=== PATIENT | female | born 1975 | race African-American/Black ===

== ENCOUNTER 2021-04-23 09:19 | Outpatient (CLI) | payer OTHER ==
[2021-04-23 10:39] LABS: Hemoglobin 13.3 g/dL (12.0-15.5); Mean Corpuscular HGB CONC 32.5 g/dL (32.0-36.0); Mean Corpuscular Hemoglobin 27.7 pg (27.0-33.0); Mean Platelet Volume 12.1 fl (7.4-10.4); Platelet Count 246 10x3/uL (150-450); RBC Distribution Width 13.2 % (11.5-14.5); Red Blood Cell (RBC) Count 4.81 10x6/uL (3.90-5.03); White Blood Cell (WBC) Count 4.8 10x3/uL (3.5-10.5)
[2021-04-23 10:51] LABS: BHCG - Serum Negative (NEGATIVE); Pregs Control Bar Appear? YES (CONTROL BAR)
[2021-04-23 10:52] LABS: Pregs Control Background? CLEAR/WHITE (CLR/WHITE)
== END 2021-04-23 09:20 | disposition home or self-care (01) ==
LOC: CSHLAB 09:19
PROVIDERS: ATTEND Obstetrics & Gynecology
DX: Z01.812 Encounter for preprocedural laboratory examination (principal); D25.9 Leiomyoma of uterus, unspecified; N94.6 Dysmenorrhea, unspecified
CPT/HCPCS: 84703; 85027; 86850; 86900; 86901

== ENCOUNTER 2021-05-04 09:46 | Inpatient (IN) | payer OTHER ==
[2021-05-04] MEDS ORDERED: Morphine 4 MG/ML VIAL SLOW IVP PRN ×2 (09:49→10:19)
[2021-05-04] MEDS ORDERED: HYDROcodone/Acetaminophen 5/325 mg Tablet PO PRN ×2 (09:49)
[2021-05-04] MEDS ORDERED: Bisacodyl 10 MG SUPP PR PRN (09:49)
[2021-05-04] MEDS ORDERED: diphenhydrAMINE 25 MG CAP PO PRN (09:49)
[2021-05-04] MEDS ORDERED: Lactated Ringer's 1,000 ML IV SCH (10:00)
[2021-05-04] MEDS ORDERED: Sodium Chloride 0.9% 1,000 ML IV SCH ×2 (10:00→10:30)
[2021-05-04 10:52] LABS: #Eosinphils 0.1 10x3/uL (0.0-0.5); #Neutrophils 11.2 10x3/uL (1.5-8.4); %Basophils 0.1 % (0.0-2.0); %Eosinophils 0.4 % (0.0-6.0); %Lymphocytes 13.3 % (18.0-47.0); %Monocytes 7.3 % (0.0-10.0); %Neutrophils 78.5 % (40.0-75.0); Hemoglobin 12.1 g/dL (12.0-15.5); Mean Corpuscular HGB CONC 33.6 g/dL (32.0-36.0); Mean Corpuscular Hemoglobin 27.6 pg (27.0-33.0); Mean Corpuscular Volume 82.2 fl (81.6-98.3); Mean Platelet Volume 10.9 fl (7.4-10.4); Platelet Count 250 10x3/uL (150-450); RBC Distribution Width 13.2 % (11.5-14.5); Red Blood Cell (RBC) Count 4.38 10x6/uL (3.90-5.03); White Blood Cell (WBC) Count 14.2 10x3/uL (3.5-10.5)
[2021-05-04] MEDS: Lactated Ringer's 1,000 ML IV SCH ×2 (10:58→22:16)
[2021-05-04] MEDS ORDERED: Piperacillin/Tazobactam 3.375 GM in Sodium Chloride 0.9% 100 ML IVPB SCH (11:00)
[2021-05-04 11:02] LABS: ALT (SGPT) 25 U/L (8-55); AST (SGOT) 19 U/L (5-34); Albumin 3.7 g/dL (3.5-5.0); Alkaline Phosphatase 83 U/L (40-110); Anion Gap 13 mmol/L (10-20); BUN (Urea Nitrogen) 11 mg/dL (7.0-18.7); Bilirubin, Total 0.5 mg/dL (0.2-1.2); Calc. Creatinine Clearance 0 mL/min (70-130); Calcium 9.1 mg/dL (7.8-10.44); Carbon Dioxide 23 mmol/L (22-29); Chloride 103 mmol/L (98-107); Globulin 4.1 g/dL (2.4-3.5); Glucose 81 mg/dL (70-105); Potassium 3.7 mmol/L (3.5-5.1); Protein, Total 7.8 g/dL (6.0-8.3); Sodium 135 mmol/L (136-145)
[2021-05-04 11:07] VITALS: BMI 31.2
[2021-05-04 12:37] LABS: Bilirubin Neg (Negative); Blood, Urine 50 (Negative); Clarity Cloudy (Clear); Glucose, Urine (Dipstick) Normal (Negative); Ketone, Urine 15 mg/dL (Negative); Leukocyte 500 (Negative); Nitrite Negative (Negative); Protein, Urine (Dipstick) 30 mg/dl (Neg-Trace); Specific Gravity, Urine 1.015 (1.002-1.036)
[2021-05-04 12:40] LABS: Urine Culture Reflex No No
[2021-05-04 12:45] LABS: Bacteria/HPF 3+ HPF (None Seen); Squamous Epithelial 0-3 HPF (0-3)
[2021-05-04] MEDS: metroNIDAZOLE 500 MG in Premix Bag 1 BAG IVPB SCH ×2 (14:15→22:17)
[2021-05-04] MEDS: Piperacillin/Tazobactam 3.375 GM in Sodium Chloride 0.9% 100 ML IVPB SCH ×2 (16:06→22:17)
[2021-05-04] MEDS ORDERED: Acetaminophen 325 MG TAB PO PRN (16:52)
[2021-05-04 19:54] LABS: #Eosinphils 0.1 10x3/uL (0.0-0.5); #Neutrophils 8.5 10x3/uL (1.5-8.4); %Basophils 0.2 % (0.0-2.0); %Eosinophils 0.6 % (0.0-6.0); %Lymphocytes 19.1 % (18.0-47.0); %Monocytes 8.4 % (0.0-10.0); %Neutrophils 71.1 % (40.0-75.0); Hemoglobin 11.3 g/dL (12.0-15.5); Mean Corpuscular HGB CONC 33.4 g/dL (32.0-36.0); Mean Corpuscular Hemoglobin 27.4 pg (27.0-33.0); Mean Corpuscular Volume 81.8 fl (81.6-98.3); Platelet Count 254 10x3/uL (150-450); RBC Distribution Width 13.3 % (11.5-14.5); Red Blood Cell (RBC) Count 4.13 10x6/uL (3.90-5.03)
[2021-05-04] MEDS: Zolpidem Tartrate 5 MG TAB PO PRN (22:18)
[2021-05-04] MEDS: Ibuprofen 800 MG TAB PO PRN (22:18)
[2021-05-05] MEDS: Piperacillin/Tazobactam 3.375 GM in Sodium Chloride 0.9% 100 ML IVPB SCH ×3 (05:43→22:15)
[2021-05-05] MEDS: metroNIDAZOLE 500 MG in Premix Bag 1 BAG IVPB SCH ×3 (05:43→22:16)
[2021-05-05] MEDS: Lactated Ringer's 1,000 ML IV SCH ×3 (05:45→22:16)
[2021-05-05] MEDS: Ibuprofen 800 MG TAB PO PRN ×2 (08:29→20:07)
[2021-05-05 16:45] LABS: #Eosinphils 0.1 10x3/uL (0.0-0.5); #Monocytes 0.7 10x3/uL (0.0-1.1); #Neutrophils 7.8 10x3/uL (1.5-8.4); %Basophils 0.3 % (0.0-2.0); %Eosinophils 1.1 % (0.0-6.0); %Lymphocytes 18.1 % (18.0-47.0); %Monocytes 6.6 % (0.0-10.0); %Neutrophils 73.5 % (40.0-75.0); Hemoglobin 11.2 g/dL (12.0-15.5); Mean Corpuscular Hemoglobin 27.4 pg (27.0-33.0); Mean Corpuscular Volume 82.9 fl (81.6-98.3); Mean Platelet Volume 10.4 fl (7.4-10.4); Platelet Count 290 10x3/uL (150-450); RBC Distribution Width 13.4 % (11.5-14.5); Red Blood Cell (RBC) Count 4.09 10x6/uL (3.90-5.03); White Blood Cell (WBC) Count 10.6 10x3/uL (3.5-10.5)
[2021-05-05] MEDS: Zolpidem Tartrate 5 MG TAB PO PRN (22:16)
[2021-05-06] MEDS: Piperacillin/Tazobactam 3.375 GM in Sodium Chloride 0.9% 100 ML IVPB SCH (05:24)
[2021-05-06] MEDS: metroNIDAZOLE 500 MG in Premix Bag 1 BAG IVPB SCH (05:25)
[2021-05-06] MEDS: Lactated Ringer's 1,000 ML IV SCH (06:09)
[2021-05-06 11:23] VITALS: BP 128/80; TEMP 98.2
[2021-05-07] MEDS ORDERED: Fluconazole 100 MG TAB PO SCH (09:00)
== END 2021-05-06 11:40 | disposition home or self-care (01) | DRG 863 ==
LOC: CSHERS 09:46 → EDSTATUS 09:55 → CSHPED 09:56
PROVIDERS: ADMIT Obstetrics & Gynecology; ATTEND Obstetrics & Gynecology
DX: T81.49XA Infection following a procedure, other surgical site, initial encounter (principal); N73.9 Female pelvic inflammatory disease, unspecified; N73.2 Unspecified parametritis and pelvic cellulitis; Y83.8 Other surgical procedures as the cause of abnormal reaction of the patient, or of later complication, without mention of misadventure at the time of the procedure
CPT/HCPCS: 36415; 74177; 80053; 81001; 85025; 87077; 87086; 87186; J2543; J3490; J7120

== ENCOUNTER 2025-03-07 19:10 | Emergency (ER) | payer OTHER, SELFPAY ==
[2025-03-07] MEDS ORDERED: diphenhydrAMINE 50 MG/ML VIAL ONE (23:52)
[2025-03-07] MEDS ORDERED: Metoclopramide HCl 10 MG (2 mL) VIAL ONE (23:52)
[2025-03-07] MEDS ORDERED: Ketorolac Tromethamine 30 MG (1 mL) VIAL ONE (23:52)
[2025-03-08 00:05] LABS: BHCG - Serum Negative (NEGATIVE); Pregs Control Background? CLEAR/WHITE (CLR/WHITE); Pregs Control Bar Appear? YES (CONTROL BAR)
[2025-03-08 00:10] LABS: ALT (SGPT) 14 U/L (Less than 34); AST (SGOT) 16 U/L (11-34); Albumin 4.1 g/dL (3.1-4.5); Alkaline Phosphatase 63 U/L (40-110); Anion Gap 10 mmol/L (10-20); BUN (Urea Nitrogen) 13 mg/dL (7.0-18.7); Bilirubin, Total 0.5 mg/dL (0.3-1.2); Calc. Creatinine Clearance 0 mL/min (70-130); Calcium 9.3 mg/dL (7.8-10.44); Carbon Dioxide 26 mmol/L (22-29); Chloride 106 mmol/L (98-107); Globulin 3.2 g/dL (2.4-3.5); Glucose 125 mg/dL (70-105); Potassium 3.4 mmol/L (3.5-5.1); Sodium 139 mmol/L (136-145)
[2025-03-08 00:17] LABS: #Basophils Less than 0.03 10x3/uL (0.0-0.2); #Eosinophils 0.08 10x3/uL (0.0-0.5); #Monocytes 0.64 10x3/uL (0.0-1.1); #Neutrophils 2.20 10x3/uL (1.5-8.4); %Basophils 0.4 % (0.0-2.0); %Eosinophils 1.7 % (0.0-6.0); %Lymphocytes 36.6 % (18.0-47.0); %Monocytes 13.8 % (0.0-10.0); %Neutrophils 47.3 % (40.0-75.0); Hematocrit 38.1 % (34.9-44.5); Hemoglobin 12.7 g/dL (12.0-15.5); Mean Corpuscular Hemoglobin 27.7 pg (27.0-33.0); Mean Corpuscular Volume 83.0 fL (81.6-98.3); Platelet Count 221 10x3/uL (150-450); Red Blood Cell (RBC) Count 4.59 10x6/uL (3.90-5.03); White Blood Cell (WBC) Count 4.65 10x3/uL (3.5-10.5)
[2025-03-08 00:31] LABS: HIV (1/2) Antibody/Antigen Non-Reactive (NonReactive); HIV 1/2 INDEX 0.16 S/CO (<1.00)
== END 2025-03-08 01:39 | disposition home or self-care (01) ==
LOC: CSHERS 19:10
DX: G43.909 Migraine, unspecified, not intractable, without status migrainosus (principal); Z11.4 Encounter for screening for human immunodeficiency virus [HIV]
CPT/HCPCS: 36415; 80053; 84703; 85025; 87389; 96374; 96375; J1200; J1885; J2765